=== PATIENT | female | born 1950 | race Two or more races ===

== ENCOUNTER 2020-02-15 11:25 | Outpatient (CLI) | payer OTHER | END 2020-02-15 11:27 | disposition home or self-care (01) | LOC: RAD 11:25 | PROVIDERS: ATTEND Orthopaedic Surgery | DX: Z76.89 Persons encountering health services in other specified circumstances (principal) ==

== ENCOUNTER 2020-02-22 08:13 | Inpatient (IN) | payer OTHER ==
[~2020-02-22] VITALS: Ht 162.6 cm; Wt 93.9 kg
[2020-03-04] MEDS ORDERED: LEVO-T125 MCG PO (08:39)
[2020-03-04] MEDS ORDERED: COZAAR100 MG PO (08:39)
[2020-03-11] MEDS ORDERED: MUPIROCIN22 GM (07:51)
[2020-03-11] MEDS ORDERED: XARELTO10 M1 PO (07:51)
[2020-03-11] MEDS ORDERED: SYMBICORT 16010.2 GM (07:51)
[2020-03-11] MEDS ORDERED: CELECOXIB200 MG (07:51)
[2020-03-11] MEDS ORDERED: LEVOTHYROXINE112 MCG (07:52)
[2020-03-11] MEDS ORDERED: MONTELUKAST SOD10 MG (07:52)
[2020-03-11] MEDS ORDERED: ROSUVASTATIN CAL5 MG (07:52)
[2020-03-14] MEDS ORDERED: ULTRAM50 MG PO (08:04)
== END 2020-03-14 19:25 | DRG 470 ==
LOC: SURH 03-04 07:15 → SURG 03-11 06:07 → O/R 03-11 06:07 → SURH 03-11 07:00 → SURG 03-11 13:42
PROVIDERS: ADMIT Orthopaedic Surgery; ATTEND Orthopaedic Surgery
PROC: 0SRC0J9 Replacement of Right Knee Joint with Synthetic Substitute, Cemented, Open Approach (ICD-10-PCS; principal; 2020-03-11 07:00)
DX: M17.11 Unilateral primary osteoarthritis, right knee (principal); E03.8 Other specified hypothyroidism; Z20.828 Contact with and (suspected) exposure to other viral communicable diseases; I10 Essential (primary) hypertension

== ENCOUNTER 2020-02-22 09:02 | Outpatient (CLI) | payer OTHER | END 2020-02-22 09:09 | disposition home or self-care (01) | LOC: LAB 09:02 | PROVIDERS: ATTEND Orthopaedic Surgery | DX: D64.89 Other specified anemias (principal); E88.89 Other specified metabolic disorders; D68.8 Other specified coagulation defects; N39.0 Urinary tract infection, site not specified; Z22.322 Carrier or suspected carrier of Methicillin resistant Staphylococcus aureus ==

== ENCOUNTER 2021-03-10 10:23 | Outpatient (CLI) | payer OTHER ==
[~2021-03-10 10:23] MED LIST: CELECOXIB200 MG; COZAAR100 MG PO; LEVO-T125 MCG PO; LEVOTHYROXINE112 MCG; MONTELUKAST SOD10 MG; MUPIROCIN22 GM; ROSUVASTATIN CAL5 MG; SYMBICORT 16010.2 GM; ULTRAM50 MG PO; XARELTO10 M1 PO
== END 2021-03-10 10:30 | disposition home or self-care (01) ==
LOC: RAD 10:23
PROVIDERS: ATTEND Orthopaedic Surgery
DX: M25.561 Pain in right knee (principal); M25.562 Pain in left knee

== ENCOUNTER → 2022-06-03 | Outpatient (CLI) | payer OTHER | END | disposition home or self-care (01) | LOC: RAD 08:34 | PROVIDERS: ATTEND Orthopaedic Surgery | DX: M25.561 Pain in right knee (principal); M25.562 Pain in left knee ==

== ENCOUNTER 2024-01-11 11:33 | Outpatient (CLI) | payer OTHER | END 2024-01-11 11:36 | disposition home or self-care (01) | LOC: RAD 11:33 | PROVIDERS: ATTEND Orthopaedic Surgery | DX: Z96.651 Presence of right artificial knee joint (principal) ==

== ENCOUNTER 2024-03-07 12:48 | Outpatient (CLI) | payer OTHER | END 2024-03-07 12:51 | disposition home or self-care (01) | LOC: RAD 12:48 | PROVIDERS: ATTEND Orthopaedic Surgery | DX: M17.12 Unilateral primary osteoarthritis, left knee (principal) ==